=== PATIENT | male | born 1970 | race Caucasian/White ===

== ENCOUNTER → 2016-09-28 | Outpatient (CLI) | payer MEDICAID ==
--- NOTE | 2016-09-28 12:21 | DX ---
Video Esophagram with Speech Therapy Clinical History: 45-year-old male with a prior cervical fusion and dysphagia. Rule out aspiration. ICD-10 Diagnostic Code: R13.10. Technique: The patient was imaged in the lateral projection and this exam was performed in conjunctio n with Patsy, the speech therapist. The patient ingested thin barium, applesauce coated with barium, a cracker coated with barium, and a barium tablet with water. Fluoroscopy Time: 0.6 minutes (exposure dose of 1.30 mGy). Comparison Study: None. Findings: There is normal oropharyngeal propulsion of the bolus into the hypopharynx. There was no na sopharyngeal reflux, pooling in the vallecular or piriform sinuses, vestibular penetration, or aspira tion. There was no cricopharyngeus spasm or other upper esophageal sphincter dysfunction. Impression: Normal study. Please also refer to the speech therapist separate assessments and specific recommendations for jordano w ambrose.
== END ==
PROVIDERS: ATTEND Family Medicine
DX: Z03.89 Encounter for observation for other suspected diseases and conditions ruled out (principal); Z98.1 Arthrodesis status
CPT/HCPCS: 92611-GN

== ENCOUNTER 2017-04-30 12:43 | Emergency (ER) | payer MEDICAID ==
[2017-04-30 12:50] VITALS: PULSE 95; RESP 16
[2017-04-30] MEDS ORDERED: TAPENTADOL HCL 50 MG TAB PO ONE (13:05)
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
[2017-04-30 14:30] VITALS: BP 156/89; TEMP 97.9; O2SAT 96
== END 2017-04-30 14:30 | disposition home or self-care (01) ==
PROC: 0HQ1XZZ Repair Face Skin, External Approach (ICD-10-PCS; principal; 2017-04-30)
DX: S01.81XA Laceration without foreign body of other part of head, initial encounter (principal); Z87.891 Personal history of nicotine dependence; W22.8XXA Striking against or struck by other objects, initial encounter

== ENCOUNTER 2017-05-22 19:40 | Emergency (ER) | payer MEDICAID ==
[2017-05-22 19:47] VITALS: RESP 16
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
[2017-05-22] MEDS ORDERED: NS 1,000 ML IV ONE (20:14)
[2017-05-22] MEDS ORDERED: LET GEL TOPICAL 1 EA SYR TP ONE ×2 (20:20→20:32)
[2017-05-22 21:32] VITALS: BP 150/85; PULSE 94; TEMP 98.2; O2SAT 95
== END 2017-05-22 21:31 | disposition home or self-care (01) ==
PROC: 3E0337Z Introduction of Electrolytic and Water Balance Substance into Peripheral Vein, Percutaneous Approach (ICD-10-PCS; principal; 2017-05-22)
DX: S01.21XA Laceration without foreign body of nose, initial encounter (principal); S51.812A Laceration without foreign body of left forearm, initial encounter; S50.312A Abrasion of left elbow, initial encounter; S80.212A Abrasion, left knee, initial encounter; G43.009 Migraine without aura, not intractable, without status migrainosus; E86.9 Volume depletion, unspecified; Z87.891 Personal history of nicotine dependence; X99.1XXA Assault by knife, initial encounter
CPT/HCPCS: 96374; J1200